=== PATIENT | male | born 1945 | race Caucasian/White ===

== ENCOUNTER 2018-03-23 15:06 | Emergency (ER) | payer OTHER ==
[2018-03-23 16:27] LABS: ABS Basophils 0 10^3/ul (0-0.2); ABS Eosinophils 0.1 10^3/ul (0-0.6); ABS Lymphocytes 0.7 10^3/ul (1.0-4.8); ABS Monocytes 1.7 10^3/ul (0-0.8); ABS Neutrophils 7.8 10^3/ul (1.5-7.7); ABS Nucleated RBC 0 10^3/ul; Hematocrit 50 % (42-52); Hemoglobin 17.5 g/dl (14.0-18.0); Lymphocyte % 6.9 %; Mean Corpuscular HGB Conc 35 g/dl (31-36); Mean Corpuscular Hemoglobin 32 pg (27-31); Mean Corpuscular Volume 92 fL (80-94); Nucleated Red Blood Cells % 0.2; Platelet Count 334 10^3/ul (150-450); Red Blood Count 5.48 10^6/ul (4.00-5.40); Red Cell Distribution Width 13 % (10.5-15); White Blood Count 10.4 10^3/ul (3.5-10.8)
[2018-03-23 16:40] LABS: Albumin 4.5 g/dL (3.2-5.2); Albumin/Globulin Ratio 1.4 (1-3); BUN/Creatinine Ratio 47.3 (8-20); C Reactive Protein 2.07 mg/L (<8.01); Calcium 9.9 mg/dL (8.6-10.3); EGFR Non-African American 36.1 (>60); Globulin 3.2 g/dL (2-4); Potassium 4.1 mmol/L (3.5-5.0); Total Bilirubin 1.2 mg/dL (0.2-1.0); Total Protein 7.7 g/dL (6.4-8.9)
[2018-03-23] MEDS ORDERED: Ondansetron INJ* 2 MG/ML VIAL IV ONE (17:51)
--- NOTE | 2018-03-23 18:18 | ED ---
Complex/Multi-Sys Presentation - HPI Summary HPI Summary: A 72 y/o male presents to the ED c/o nausea, vomiting, and diarrhea. As per triage, "Pt stated he has had diarrhea and vomiting for about 5 days. Pt thinks that he is dehydrated". Currently, the patient reports his symptoms reaching 3/10 in severity. As per patient, he has been experiencing N/V/D since February. He has been experiencing continuous diarrhea since onset, including today. He denies any abdominal pain, fevers, chills, SOB, and CP. Patient denies any travel or any recent antibiotics. Patient did have 2 imodium this morning around 0500 and another one at 1200 which has helped. No medical conditions. Home Medications Medication Instructions Recorded Confirmed Type Aspirin [Aspirin Regimen Low Dose/] 81 mg PO DAILY 02/24/17 02/24/17 History [place]-3 Fatty Acids/Fish Oil 1 cap PO DAILY 02/24/17 02/24/17 History [[place] 3] Valsartan [Valsartan 320 MG] 320 mg PO DAILY 02/24/17 02/27/17 History - History Of Current Complaint Chief Complaint: EDNauseaVomitDiarrh Time Seen by Provider: 03/23/18 17:38 Hx Obtained From: Patient Onset/Duration: Sudden Onset, Lasting Days, Still Present Timing: Constant Severity Currently: Mild - 3/10 Severity Initially: Mild - 3/10 Location: Negative Character: Unable To Describe Aggravating Factor(s): NOTHING Alleviating Factor(s): IMODIUM Associated Signs And Symptoms: Positive: Nausea, Vomiting, Diarrhea. Negative: SOB, Chest Pain, Abdominal Pain, Fever - Allergies/Home Medications Allergies/Adverse Reactions: Allergies Allergy/AdvReac Type Severity Reaction Status Date / Time No Known Allergies Allergy Verified 03/23/18 15:14 PMH/Surg Hx/FS Hx/Imm Hx Endocrine/Hematology History: Denies: Hx Diabetes Cardiovascular History: Denies: Hx Hypertension - Cancer History Cancer Type, Location and Year: PROSTATE CANCER - Surgical History Surgery Procedure, Year, and Place: PROSTATE REMOVAL Infectious Disease History: No Infectious Disease History: Denies: Traveled Outside the [place] in Last 30 Days - Family History Known Family History: Negative: Cardiac Disease - Social History Alcohol Use: None Substance Use Type: Reports: None Smoking Status (MU): Never Smoked Tobacco Review of Systems Negative: Fever, Chills Negative: Chest Pain Negative: Shortness Of Breath Positive: Vomiting, Diarrhea, Nausea. Negative: Abdominal Pain All Other Systems Reviewed And Are Negative: Yes Physical Exam - Summary Physical Exam Summary: GENERAL: Patient is a well-developed and nourished male who is lying comfortable in the stretcher. Patient is not in any acute respiratory distress. HEAD AND FACE: Normocephalic EYES: PERRLA, EOMI x 2. EARS: Hearing grossly intact. MOUTH: Oropharynx within normal limits. NECK: Supple, trachea is midline, no adenopathy, no JVD, no carotid bruit. CHEST: Symmetric, no tenderness at palpation LUNGS: Clear to auscultation bilaterally. No wheezing or crackles. CVS: Regular rate and rhythm, S1 and S2 present, no murmurs or gallops appreciated. ABDOMEN: Soft, non-tender. Bowel sounds are normal. No abdominal abnormal pulsations. EXTREMITIES: Full ROM in all major joints, no edema, no cyanosis or clubbing. NEURO: Alert and oriented x 3. No acute neurological deficits. Speech is normal and follows commands. SKIN: Dry and warm Triage Information Reviewed: Yes Vital Signs On Initial Exam: Initial Vitals Temp Pulse Resp BP Pulse Ox 97.9 F 105 20 134/75 96 03/23/18 15:11 03/23/18 15:11 03/23/18 15:11 03/23/18 15:11 03/23/18 15:11 Vital Signs Reviewed: Yes Diagnostics - Vital Signs Vital Signs Temp Pulse Resp BP Pulse Ox 03/23/18 17:26 97.4 F 118 16 118/83 100 03/23/18 15:11 97.9 F 105 20 134/75 96 - Laboratory Lab Results: Lab Results 03/23/18 03/23/18 03/23/18 Range/Units 16:08 16:08 16:08 WBC 10.4 (3.5-10.8) 10^3/ul RBC 5.48 H (4.00-5.40) 10^6/ul Hgb 17.5 (14.0-18.0) g/dl Hct 50 (42-52) % MCV 92 (80-94) fL MCH 32 H (27-31) pg MCHC 35 (31-36) g/dl RDW 13 (10.5-15) % Plt Count 334 (150-450) 10^3/ul MPV 9.0 (7.4-10.4) fL Neut % (Auto) 75.5 % Lymph % (Auto) 6.9 % [place] % (Auto) 16.5 % Eos % (Auto) 1.0 % Baso % (Auto) 0.1 % Absolute Neuts (auto) 7.8 H (1.5-7.7) 10^3/ul Absolute Lymphs (auto) 0.7 L (1.0-4.8) 10^3/ul Absolute Monos (auto) 1.7 H (0-0.8) 10^3/ul Absolute Eos (auto) 0.1 (0-0.6) 10^3/ul Absolute Basos (auto) 0 (0-0.2) 10^3/ul Absolute Nucleated RBC 0 10^3/ul Nucleated RBC % 0.2 Sodium 131 L (135-145) mmol/L Potassium 4.1 (3.5-5.0) mmol/L Chloride 96 L (101-111) mmol/L Carbon Dioxide 25 (22-32) mmol/L Anion Gap 10 (2-11) mmol/L BUN 88 H (6-24) mg/dL Creatinine 1.86 H (0.67-1.17) mg/dL Est GFR ( Amer) 43.7 (>60) Est GFR (Non-Af Amer) 36.1 (>60) BUN/Creatinine Ratio 47.3 H (8-20) Glucose 193 H (70-100) mg/dL Lactic Acid 1.8 (0.5-2.0) mmol/L Calcium 9.9 (8.6-10.3) mg/dL Total Bilirubin 1.20 H (0.2-1.0) mg/dL AST 11 L (13-39) U/L ALT 15 (7-52) U/L Alkaline Phosphatase 106 H (34-104) U/L C-Reactive Protein 2.07 (<8.01) mg/L Total Protein 7.7 (6.4-8.9) g/dL Albumin 4.5 (3.2-5.2) g/dL Globulin 3.2 (2-4) g/dL Albumin/Globulin Ratio 1.4 (1-3) Lipase 48 (11.0-82.0) U/L Result Diagrams: 03/23/18 16:08 03/23/18 16:08 Lab Statement: Any lab studies that have been ordered have been reviewed, and results considered in the medical decision making process. Complex Multi-Symp Course/Dx Course Of Treatment: A 72 y/o male presents to the ED c/o nausea, vomiting, and diarrhea. As per triage, "Pt stated he has had diarrhea and vomiting for about 5 days. Pt thinks that he is dehydrated". Currently, the patient reports his symptoms reaching 3/10 in severity. As per patient, he has been experiencing N/V /D since February. He has been experiencing continuous diarrhea since onset, including today. He denies any abdominal pain, fevers, chills, SOB, and CP. Patient denies any travel or any recent antibiotics. Patient did have 2 imodium this morning around 0500 and another one at 1200 which has helped. No medical conditions. Physical examination was unremarkable. Hematology and Chemistry screens were done. No significant laboratory abnormalities were found except elevated creatinine and glucose with values of 1.86 mg/dL and 193 mg/dL. Additionally low sodium and chloride values of 131 mg/ dL and 96 mg/dL, respectively. In the ED course, the patient received Ondansetron and IV fluids. Patient will be signed out to Dr. Sergey Gomez via Dr. Payton Juárez, pending urinalysis and disposition, upon shift change on at 1900. Patient will be signed out with a diagnosis of gastroenteritis. - Diagnoses Provider Diagnoses: Acute gastroenteritis, Dehydration, Acute renal failure Discharge - Sign-Out/Discharge Documenting (check all that apply): Sign-Out Patient - DANISHA Signing out patient TO: Sergey Gomez Receiving patient FROM: Payton Juárez - Discharge Plan Condition: Improved Disposition: HOME Prescriptions: Ondansetron ODT TAB* [Zofran 4 MG Odt TAB*] 4 mg PO Q6H PRN #12 tab.odt PRN Reason: Nausea Patient Education Materials: Dehydration (ED), Gastroenteritis (ED) Referrals: Marychuy Aguilar MD [Primary Care Provider] - Additional Instructions: Drink plenty of fluids. Avoid ibuprofen and like medications. Return with persistent diarrhea, weakness, lightheadedness, worse, new symptoms or other concerns as discussed. Follow-up with your doctor in 2 days - Billing Disposition and Condition Condition: IMPROVED Disposition: Home - Attestation Statements Document Initiated by Melia: Yes Documenting Scribe: Lazaro Rodriguez Provider For Whom Melia is Documenting (Include Credential): Payton Juárez MD Scribe Attestation: Lazaro Rosa, scribed for Payton Juárez MD on 03/25/18 at 0737. Scribe Documentation Reviewed: Yes Provider Attestation: The documentation as recorded by the Lazaro singletary accurately reflects the service I personally performed and the decisions made by me, Payton Juárez MD Status of Scribe Document: Viewed
[2018-03-23] MEDS ORDERED: Ondansetron ODT TAB* 4 MG SL PRN (18:37)
[2018-03-23] MEDS: NS 0.9% 1000 ML* 2,000 ML IV ONE (18:50)
[2018-03-23 19:04] LABS: Urine Appearance Clear; Urine Bacteria Absent (Absent); Urine Bilirubin Negative (Negative); Urine Blood 3+ (Negative); Urine Color Yellow; Urine Glucose Negative (Negative); Urine Ketones Negative (Negative); Urine Nitrite Negative (Negative); Urine Protein Negative (Negative); Urine Red Blood Cell Trace(0-2/hpf) (Absent); Urine Specific Gravity 1.016 (1.010-1.030); Urine Urobilinogen Negative (Negative); Urine White Blood Cell Trace(0-5/hpf) (Absent)
[2018-03-23] MEDS ORDERED: NS 0.9% 1000 ML* 1,000 ML IV ONE (19:09)
[2018-03-23] MEDS ORDERED: Ondansetron ODT TAB* 4 MG PO ONE (19:37)
--- NOTE | 2018-03-23 19:47 | ED ---
Progress - Progress Note Progress Note: Pt is signed out from Dr. Juárez, pending UA. He was not able to produce a stool specimen. Pt will be discharged with final dx of acute renal failure, acute gastroenteritis, and dehydration. Re-Evaluation - Re-Evaluation First Eval Re-Evaluation Time: 19:24 Change: Improved Comment: Pt feels better. Course/Dx - Course Course Of Treatment: Nurse's notes reviewed. I assumed care from previous ER physician. The patient had nausea vomiting and diarrhea. These symptoms have improved. He felt dehydrated. His creatinine has elevated from 1.1 baseline to 1.86 today. He received 3 L of IV fluids and was feeling much better. He was unable to provide a stool sample. He will follow up closely with her primary care physician. - Diagnoses Provider Diagnoses: Acute gastroenteritis, Dehydration, Acute renal failure Discharge - Sign-Out/Discharge Documenting (check all that apply): Patient Departure - Discharge, Receiving Sign-Out Receiving patient FROM: Payton Juárez - Discharge Plan Condition: Improved Disposition: HOME Prescriptions: Ondansetron ODT TAB* [Zofran 4 MG Odt TAB*] 4 mg PO Q6H PRN #12 tab.odt PRN Reason: Nausea Patient Education Materials: Dehydration (ED), Gastroenteritis (ED) Referrals: Marychuy Aguilar MD [Primary Care Provider] - Additional Instructions: Drink plenty of fluids. Avoid ibuprofen and like medications. Return with persistent diarrhea, weakness, lightheadedness, worse, new symptoms or other concerns as discussed. Follow-up with your doctor in 2 days - Billing Disposition and Condition Condition: IMPROVED Disposition: Home - Attestation Statements Document Initiated by Melia: Yes Documenting Scribe: Anneliese Stern Provider For Whom Melia is Documenting (Include Credential): Sergey Gomez MD Scribe Attestation: Anneliese Rosa, scribed for Sergey Gomez MD on 03/23/18 at 2253. Scribe Documentation Reviewed: Yes Provider Attestation: The documentation as recorded by the Anneliese singletary accurately reflects the service I personally performed and the decisions made by me, Sergey Gomez MD Status of Scribe Document: Viewed
[2018-03-23 20:46] VITALS: BP 131/71
== END 2018-03-23 20:47 | disposition home or self-care (01) ==
LOC: ED 15:06
DX: K52.9 Noninfective gastroenteritis and colitis, unspecified (principal); E86.0 Dehydration; N17.9 Acute kidney failure, unspecified; Z85.46 Personal history of malignant neoplasm of prostate
CPT/HCPCS: 36415; 80053; 81003; 81015; 83605; 83690; 85025; 86140; 87086; 96361; 96374; 99283; A9270-GY; J2405

== ENCOUNTER 2021-04-17 07:00 | Observation (INO) ==
[2021-04-17] MEDS ORDERED: Heparin - STEMI 5,000 UNITS/ML 1 ml VIAL IV ONE ×2 (09:02→09:06)
[2021-04-17] MEDS ORDERED: Heparin DRIP 25,000 UNITS BAG 25,000 UNITS/500 ML BAG ONE (09:02)
[2021-04-17] MEDS ORDERED: Heparin DRIP 25,000 UNITS BAG 25,000 UNITS/500 ML BAG IV SCH (09:15)
[2021-04-17 09:34] LABS: ABS Basophils 0.1 10^3/ul (0-0.2); ABS Eosinophils 0.1 10^3/ul (0-0.6); ABS Lymphocytes 1.5 10^3/ul (1.0-4.8); ABS Monocytes 0.7 10^3/ul (0-0.8); ABS Neutrophils 4.3 10^3/ul (1.5-7.7); Eosinophil % 2.1 %; Hematocrit 46 % (42-52); Hemoglobin 15.5 g/dL (14.0-18.0); Lymphocyte % 22.6 %; Mean Corpuscular HGB Conc 34 g/dL (31-36); Mean Corpuscular Hemoglobin 32 pg (27-31); Mean Corpuscular Volume 93 fL (80-94); Mean Platelet Volume 8.7 fL (7.4-10.4); Nucleated Red Blood Cells % 0.1; Platelet Count 225 10^3/uL (150-450); Red Blood Count 4.89 10^6 /uL (4.18-5.48); Red Cell Distribution Width 14 % (10-15); White Blood Count 6.8 10^3/uL (3.5-10.8)
[2021-04-17 09:53] LABS: Calcium 9.9 mg/dL (8.6-10.3); Magnesium 1.9 mg/dL (1.9-2.7); eGFR CKD-EPI 54.5 (>60)
[2021-04-17 09:54] LABS: Potassium 5.2 mmol/L (3.5-5.0)
[2021-04-17] MEDS ORDERED: Heparin 5000 UNITS/ML 1 mL VIAL IV SCH (10:00)
[2021-04-17] MEDS ORDERED: Flumazenil 0.5 mg/5 ml 0.1 MG/ML 5 ml VIAL ONE (10:22)
[2021-04-17] MEDS ORDERED: Naloxone 0.4 mg VIAL 0.4 mg/ml 1 ml VIAL ONE (10:22)
[2021-04-17] MEDS ORDERED: Midazolam 5 mg/5 ml VIAL 1 mg/ml 5 ml VIAL (5 mg) ONE (10:22)
[2021-04-17] MEDS ORDERED: fentaNYL 100 mcg/2 ml 50 MCG/ML VIAL ONE (10:22)
[2021-04-17 11:04] LABS: Free T3 2.8 pg/mL (2.5-3.9)
[2021-04-17 11:05] LABS: TSH Ultra Thyroid Stim Horm 5.63 mcIU/mL (0.34-5.60)
[2021-04-17 11:07] LABS: Free T4 1.17 ng/dL (0.61-1.12)
[2021-04-18 04:54] LABS: ABS Basophils 0.1 10^3/ul (0-0.2); ABS Eosinophils 0.2 10^3/ul (0-0.6); ABS Lymphocytes 1.7 10^3/ul (1.0-4.8); ABS Monocytes 0.6 10^3/ul (0-0.8); ABS Neutrophils 4.1 10^3/ul (1.5-7.7); Eosinophil % 3.7 %; Hematocrit 41 % (42-52); Lymphocyte % 24.8 %; Mean Corpuscular HGB Conc 34 g/dL (31-36); Mean Corpuscular Hemoglobin 32 pg (27-31); Mean Corpuscular Volume 94 fL (80-94); Mean Platelet Volume 8.8 fL (7.4-10.4); Platelet Count 191 10^3/uL (150-450); Red Blood Count 4.34 10^6 /uL (4.18-5.48); Red Cell Distribution Width 14 % (10-15); White Blood Count 6.7 10^3/uL (3.5-10.8)
[2021-04-18] MEDS ORDERED: NS 0.9% 1000 ml BAG 1,000 ML IV SCH (06:00)
[2021-04-18] MEDS ORDERED: fentaNYL 100 mcg/2 ml 50 MCG/ML VIAL ONE (07:48)
[2021-04-18] MEDS ORDERED: Heparin 1,000 UNIT/ML 10 ml (10,000 UNITS) CATHLAB/DIALYSIS ONE (07:48)
[2021-04-18] MEDS ORDERED: VERAPAMIL 2.5 MG/ML 2 ML VIAL ** 5 mg/2 ml ONE (07:48)
[2021-04-18] MEDS ORDERED: Midazolam 5 mg/5 ml VIAL 1 mg/ml 5 ml VIAL (5 mg) ONE (07:48)
[2021-04-18] MEDS ORDERED: Iohexol 350 (CONTRAST) 200 ML MDV IV ONE ×2 (07:49→08:45)
[2021-04-18] MEDS ORDERED: Lidocaine 1% VIAL 10 MG/ML VIAL ONE (07:49)
[2021-04-18] MEDS ORDERED: niCARdipine 0.1MG/ML IVPREMIX 20 MG/200 ML BAG IV ONE (07:49)
[2021-04-18] MEDS ORDERED: nitroGLYCERIN DRIP 25,000 MCG/250 ML BTL ONE (07:49)
[2021-04-18] MEDS ORDERED: Heparin 2 UNITS/ML 1000 mls 3,000 ML IV ONE (07:49)
[2021-04-18 09:10] LABS: POC SO2 69 %
[2021-04-18 09:10] LABS: POC SO2 76 %
[2021-04-18 09:10] LABS: POC SO2 90 %
[2021-04-18 09:10] LABS: POC SO2 69 %
[2021-04-18 09:10] LABS: POC SO2 74 %
[2021-04-18 09:10] LABS: POC SO2 72 %
[2021-04-18] MEDS ORDERED: Enoxaparin 60 MG/0.6 ML SYR SUBCUT ONE (13:00)
[2021-04-18 13:35] VITALS: BP 130/68
[2021-04-19 07:13] LABS: POC SO2 69 %
== END 2021-04-18 16:00 | disposition home or self-care (01) ==
LOC: MEDTELE 07:00 → CHICATH 07:00
PROVIDERS: ADMIT Internal Medicine; ATTEND Internal Medicine Cardiovascular Disease

== ENCOUNTER 2021-05-07 08:52 | Observation (INO) ==
[2021-05-07] MEDS ORDERED: Lactated Ringers 500 ml BAG 500 ML IV ONE (09:22)
[2021-05-07 10:12] LABS: INR 2.73 (0.86-1.15)
[2021-05-07 11:12] LABS: ABS Basophils 0.1 10^3/ul (0-0.2); ABS Eosinophils 0.2 10^3/ul (0-0.6); ABS Lymphocytes 0.8 10^3/ul (1.0-4.8); ABS Monocytes 1.3 10^3/ul (0-0.8); ABS Neutrophils 8.4 10^3/ul (1.5-7.7); Eosinophil % 2.3 %; Hematocrit 26 % (42-52); Hemoglobin 8.7 g/dL (14.0-18.0); Mean Corpuscular HGB Conc 34 g/dL (31-36); Mean Corpuscular Hemoglobin 32 pg (27-31); Mean Corpuscular Volume 95 fL (80-94); Mean Platelet Volume 8.2 fL (7.4-10.4); Platelet Count 265 10^3/uL (150-450); Red Blood Count 2.73 10^6 /uL (4.18-5.48); Red Cell Distribution Width 14 % (10-15); White Blood Count 10.7 10^3/uL (3.5-10.8)
[2021-05-07 11:28] LABS: ALT 41 U/L (7-52); AST 31 U/L (13-39); Albumin 3.2 g/dL (3.2-5.2); Albumin/Globulin Ratio 1.4 (1-3); Alkaline Phosphatase 75 U/L (35-149); Anion Gap 6 mmol/L (2-11); Blood Urea Nitrogen 34 mg/dL (6-24); CO2 Carbon Dioxide 25 mmol/L (22-32); Chloride 109 mmol/L (101-111); Globulin 2.3 g/dL (2-4); Glucose 103 mg/dL (70-100); Magnesium 1.7 mg/dL (1.9-2.7); Potassium 4.5 mmol/L (3.5-5.0); Sodium 140 mmol/L (135-145); Total Protein 5.5 g/dL (6.4-8.9); eGFR CKD-EPI 55.9 (>60)
[2021-05-07] MEDS ORDERED: Magnesium Sulfate IV 1GM/100ML 1 GM/100 ML BAG IV ONE (11:32)
[2021-05-07] MEDS ORDERED: Iodixanol (CONTRAST) 320 MG/ML 100 ML SDV IV ONE (11:35)
[2021-05-07 11:39] LABS: Troponin I 0.58 ng/mL (<0.03)
[2021-05-07 14:18] LABS: Troponin I 0.51 ng/mL (<0.03)
[2021-05-07] MEDS ORDERED: Furosemide 40 mg/4 ml IV VIAL IV ONE (15:28)
[2021-05-07 15:42] LABS: % Iron Saturation 14 % (15-55); Iron 37 ug/dL (50-212); Total Iron Binding Capacity 262 mcg/dL (250-450); Transferrin 187 mg/dL (203-362); Unsaturated Iron Binding 225 ug/dL
[2021-05-07 15:51] LABS: TSH Ultra Thyroid Stim Horm 8.55 mcIU/mL (0.34-5.60)
[2021-05-07 15:57] LABS: Ferritin 187.2 ng/mL (24-336)
[2021-05-07 16:00] LABS: Folate > 20.00 ng/mL (5.90-24.80)
[2021-05-07] MEDS ORDERED: Enoxaparin 40 MG/0.4 ML SYR SUBCUT SCH (16:00)
[2021-05-07 16:02] LABS: Vitamin B12 873 pg/mL (180-914)
[2021-05-07] MEDS ORDERED: Warfarin per PHARMACY **NOTE FOLLOW UP SCH (18:00)
[2021-05-07 20:34] LABS: Troponin I 0.41 ng/mL (<0.03)
[2021-05-08 04:54] LABS: ABS Basophils 0.1 10^3/ul (0-0.2); ABS Eosinophils 0.3 10^3/ul (0-0.6); ABS Monocytes 0.9 10^3/ul (0-0.8); ABS Neutrophils 5.5 10^3/ul (1.5-7.7); Eosinophil % 3.8 %; Hematocrit 26 % (42-52); Hemoglobin 8.8 g/dL (14.0-18.0); Lymphocyte % 12.7 %; Mean Corpuscular HGB Conc 33 g/dL (31-36); Mean Corpuscular Hemoglobin 32 pg (27-31); Mean Corpuscular Volume 95 fL (80-94); Mean Platelet Volume 7.9 fL (7.4-10.4); Nucleated Red Blood Cells % 0.1; Platelet Count 259 10^3/uL (150-450); Red Blood Count 2.79 10^6 /uL (4.18-5.48); Red Cell Distribution Width 14 % (10-15); White Blood Count 7.7 10^3/uL (3.5-10.8)
[2021-05-08 04:59] LABS: INR 2.37 (0.86-1.15)
[2021-05-08 05:11] LABS: Calcium 8.8 mg/dL (8.6-10.3); Magnesium 1.8 mg/dL (1.9-2.7); Potassium 4.4 mmol/L (3.5-5.0); eGFR CKD-EPI 46.6 (>60)
[2021-05-08] MEDS ORDERED: Magnesium Sulf 4 GM/100 ML IV 4,000 MG/100 ML BAG IVPB ONE (07:10)
[2021-05-08] MEDS ORDERED: Magnesium Sulfate 2 gm BAG 2 GM/50 ML BAG IVPB ONE (08:51)
[2021-05-08] MEDS ORDERED: Aspirin EC 81 mg TAB.EC (enteric coated) PO SCH (09:00)
[2021-05-08] MEDS ORDERED: Iron Sucrose 200 MG in NS 0.9% 100 ml BAG 100 ML IVPB SCH (09:00)
[2021-05-08] MEDS ORDERED: Cholecalciferol (VIT D3) 1,000 unit TAB PO SCH (09:00)
[2021-05-08 09:13] LABS: Free T4 1.12 ng/dL (0.61-1.12)
[2021-05-08 12:43] VITALS: BP 130/71
[2021-05-08] MEDS ORDERED: Warfarin DAILY REMINDER **NOTE FOLLOW UP SCH (17:00)
== END 2021-05-08 15:30 | disposition home or self-care (01) ==
LOC: ED 08:52 → MEDTELE 08:52
PROVIDERS: ADMIT Internal Medicine; ATTEND Internal Medicine